=== PATIENT | female | born 1995 | race Caucasian/White ===

== ENCOUNTER → 2022-10-26 | Outpatient (CLI) | payer BC, MEDICAID, SELFPAY ==
[2022-10-26 12:41] LABS: Progesterone Level 0.62 ng/mL (See Comment)
[2022-10-26 12:47] LABS: Estradiol 42.1 pg/mL; Follicle Stimulating Hormone 5.6 mIU/mL; Prolactin 17.6 ng/mL; T4 Free Direct 0.89 ng/dL (0.76-1.46); Thyroid Stim Hormone (TSH) 1.53 uIU/mL (0.358-3.74)
[2022-10-29 10:19] LABS: HPV Reflexed? NOT INDICATED
[2022-10-30 09:08] LABS: Testosterone, % Free 2.33 % (0.50-2.80); Testosterone, Free 1.14 ng/dL (0.10-0.85); Testosterone, Total 49 ng/dL (13-71)
== END | disposition home or self-care (01) ==
LOC: WOBLAB 11:35
PROVIDERS: Visit Provider Student in an Organized Health Care Education/Training Program
DX: N94.6 Dysmenorrhea, unspecified (principal)
CPT/HCPCS: 36415; 82627; 82670; 83001; 83002; 84144; 84146; 84402; 84403; 84439; 84443; 88175; 82626; G0145